=== PATIENT | male | born 1985 | race Caucasian/White ===

== ENCOUNTER 2017-09-06 17:03 | Emergency (ER) | payer SELFPAY ==
[2017-09-06 17:28] VITALS: O2SAT 98
--- NOTE | 2017-09-06 17:40 | ERPHSYRPT ---
- History of Present Illness Time Seen by Provider: 09/06/17 17:30 Source: patient Patient Subjective Stated Complaint: states twisted left knee one week ago. pain since then. Triage Nursing Assessment: left knee normal color, no bruising or swelling noted. good left pedal pulse. 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 He states left knee twisted and popped 4 days ago. Pain since. No swelling. Some numbness. No fever or redness. No hx of gout. Occurred: days ago (4) Lower Extremities Pain: knee: left Allergies/Adverse Reactions: amoxicillin Allergy (Verified 09/06/17 17:22) Home Medications: Omeprazole 20 MG [Prilosec 20 mg] 20 mg PO DAILY 09/06/17 [History] Hx Tetanus, Diphtheria Vaccination/Date Given: Yes Hx Influenza Vaccination/Date Given: No Hx Pneumococcal Vaccination/Date Given: No - Review of Systems Constitutional: No Fever, No Chills Musculoskeletal: Injury (left knee), No Back Pain, No Neck Pain Neurological: Parasthesia, No Focal Weakness, No Headache - Past Medical History Pertinent Past Medical History: Yes GI Medical History: GERD - Past Surgical History Past Surgical History: Yes Gastrointestinal: Appendectomy, Hernia Repair - Social History Smoking Status: Current every day smoker How long have you smoked: 15 Exposure to second hand smoke: No Drug Use: none Patient Lives Alone: No - Nursing Vital Signs Nursing Vital Signs: Initial Vital Signs Temperature 98.7 F 09/06/17 17:17 Pulse Rate 85 09/06/17 17:17 Respiratory Rate 16 09/06/17 17:17 Blood Pressure 141/63 09/06/17 17:17 O2 Sat by Pulse Oximetry 98 09/06/17 17:17 Pain Scale Pain Intensity 10 - Physical Exam General Appearance: alert Eyes, Ears, Nose, Throat Exam: moist mucous membranes Neck Exam: supple Cardiovascular/Respiratory Exam: regular rate/rhythm Neuro/Tendon Exam: normal sensation, normal motor functions Mental Status Exam: alert, oriented x 3, cooperative Skin Exam: warm, dry, No rash SpO2 Interpretation: normal SpO2: 98 Oxygen Delivery: Room Air Comments: left knee has mild tenderness with gonzalez and anterior drawer, no instabililty noted. No redness or swelling. No other leg tenderness. - Course Nursing assessment & vital signs reviewed: Yes Ordered Tests: Active Orders 24 hr Category Date Time Status KNEE (3 VIEWS) Stat Exams 09/06/17 17:35 Stop Req - Progress Progress Note: 09/06/17 17:40 pt declined motrin here. INSPECT reviewed. 09/06/17 17:54 Pt decided he does not want a knee xray and he will use his support wrap he already has. He plans ortho follow up. Will release with instr. Counseled pt/family regarding: diagnosis, need for follow-up - Departure Time of Disposition: 17:55 Departure Disposition: Home Clinical Impression: Left knee sprain Qualifiers: Encounter type: initial encounter Involved ligament of knee: anterior cruciate ligament Qualified Code(s): S83.512A - Sprain of anterior cruciate ligament of left knee, initial encounter Condition: Stable Critical Care Time: No Referrals: DOCTOR,NO FAMILY [NON-STAFF PHY W/O PRIVILEGES] - Instructions: Knee Sprain (DC) Additional Instructions: SPRAINS/STRAINS/CONTUSIONS 1. Rest the affected area as much as possible for the next few days. 2. Apply ice to the affected area for 20-30 minutes at a time, several times a day. 3. If you receive an elastic wrap, wear it only while awake for comfort and support. Re-wrap the elastic wrap if it feels too tight or too loose. 4. If swelling is present, elevate the affected part above the level of the heart for at least 2 to 3 days. 5. Use splints, slings, or crutches as instructed. 6. Watch for severe swelling, coldness, numbness, and discoloration of the fingers and toes. See your family physician or return to the emergency department if any of these are noted. Rx ibuprofen for pain. Prescriptions: Ibuprofen 600 mg PO Q6H PRN PRN #15 tablet PRN Reason: Pain
[2017-09-06 18:03] VITALS: BP 143/79; PULSE 90
== END 2017-09-06 18:52 | disposition home or self-care (01) ==
LOC: ED 17:03
DX: S83.512A Sprain of anterior cruciate ligament of left knee, initial encounter (principal); M25.562 Pain in left knee
CPT/HCPCS: 99281; 99283

== ENCOUNTER 2017-12-08 18:15 | Emergency (ER) | payer OTHER ==
[2017-12-08 18:31] VITALS: BP 146/76; PULSE 77; O2SAT 98
--- NOTE | 2017-12-08 20:11 | ERPHSYRPT ---
- History of Present Illness Time Seen by Provider: 12/08/17 19:59 Source: patient Exam Limitations: no limitations Patient Subjective Stated Complaint: Pt states "I have a hernia. I have had it for years but it is really bothering me today. I have been in so much pain I have been vomiting." Triage Nursing Assessment: Pt alert and oriented X 3, skin pwd. PT ambulates with an upright steady gait, able to speak in clear full sentences. no swelling noted in abdomen, painful palpation ro left lower quadrant. Physician History: This is a 31-year-old white male with history of a left inguinal hernia symptoms for 5 years. Patient states his hernias been bothering him for the past week worse today. He states he vomited one time. 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 Past medical history includes GERD, appendectomy, hernia repair on the right. Social history occasional alcohol Timing/Duration: day(s) (symptoms for several days, worse today) Severity: moderate Modifying Factors: Improves With: nothing Associated Symptoms: vomiting, abdominal pain (left groin pain), No nausea, No shortness of breath, No heartburn, No diaphoresis, No cough, No chills, No chest pain, No fever, No headaches, No loss of appetite, No malaise, No rash, No syncope, No seizure, No weakness Allergies/Adverse Reactions: amoxicillin Allergy (Verified 09/06/17 17:22) Home Medications: Omeprazole [Prilosec] 20 mg PO DAILY 12/08/17 [History] Hx Tetanus, Diphtheria Vaccination/Date Given: Yes Hx Influenza Vaccination/Date Given: No Hx Pneumococcal Vaccination/Date Given: No Immunizations Up to Date: Yes - Review of Systems Constitutional: No Fever, No Chills Eyes: No Symptoms Ears, Nose, & Throat: No Symptoms Respiratory: No Cough, No Dyspnea Cardiac: No Chest Pain, No Edema, No Syncope Abdominal/Gastrointestinal: Abdominal Pain, Other (patient states he has a hernia right lower quadrant), No Nausea, No Vomiting, No Diarrhea Genitourinary Symptoms: No Dysuria Musculoskeletal: No Back Pain, No Neck Pain Skin: No Rash Neurological: No Dizziness, No Focal Weakness, No Sensory Changes Psychological: No Symptoms Endocrine: No Symptoms All Other Systems: Reviewed and Negative - Past Medical History Pertinent Past Medical History: Yes GI Medical History: GERD - Past Surgical History Past Surgical History: Yes Gastrointestinal: Appendectomy, Hernia Repair - Social History Smoking Status: Current every day smoker How long have you smoked: 18 years Exposure to second hand smoke: Yes Drug Use: none Patient Lives Alone: Yes - Nursing Vital Signs Nursing Vital Signs: Initial Vital Signs Temperature 98.7 F 12/08/17 18:27 Pulse Rate 77 12/08/17 18:27 Respiratory Rate 16 12/08/17 18:27 Blood Pressure 146/76 12/08/17 18:27 O2 Sat by Pulse Oximetry 98 12/08/17 18:27 Pain Scale Pain Intensity 9 - Physical Exam General Appearance: no apparent distress, alert Eye Exam: PERRL/EOMI, eyes nml inspection Ears, Nose, Throat Exam: normal ENT inspection, TMs normal, pharynx normal, moist mucous membranes Neck Exam: normal inspection, non-tender, supple, full range of motion Respiratory Exam: normal breath sounds, lungs clear, No respiratory distress Cardiovascular Exam: regular rate/rhythm, normal heart sounds, normal peripheral pulses Gastrointestinal/Abdomen Exam: soft, normal bowel sounds, tenderness (mild tenderness with palpation left lower quadrant) Male Genitalia Exam: other (patient with palWilllpably her herniania ing inguinaluinal [place] with strain with straininging reduce reducess when st when stopsops straining testicles descended bilaterally) Back Exam: normal inspection, normal range of motion, No CVA tenderness, No vertebral tenderness Extremity Exam: normal inspection, normal range of motion, pelvis stable Neurologic Exam: alert, oriented x 3, cooperative, traffic control specialist II-XII nml as tested, normal mood/affect, nml cerebellar function, nml station & gait, sensation nml, No motor deficits Skin Exam: normal color, warm, dry, No rash Lymphatic Exam: No adenopathy SpO2 Interpretation: normal (98%) SpO2: 98 Oxygen Delivery: Room Air - Course Nursing assessment & vital signs reviewed: Yes - Progress Progress: improved Progress Note: 12/08/17 20:11 This is a 31-year-old white male he states he has a chronic left-sided inguinal hernia which she has had for 5 years, he states that for the past several days he's been having pain in the left groin worse with straining. States it is worse today he states he vomited times one. On physical examination patient is abdomen is soft there is slight tenderness in the left lower quadrant. Patient has a palpable inguinal hernia which is apparent with straining but reduces spontaneously when he stops draining. He does state that sometimes she can feel this on the lower anterior abdomen but if he does he pushes it back in. I cannot feel anything today he has very minimal tenderness in the left lower quadrant. I have offered to obtain CT of the patient's abdomen he does not want one. He is interested in pain medication. Will review patient's inspect and if clean consider [place] for pain patient has seen Dr. Christian showed in the past for right sided inguinal hernia will recommend he follow up with Dr. Christian. patient states he would liketo go home, will forego or further testing he does not appear to be in acute distress. - Departure Time of Disposition: 20:15 Departure Disposition: Home Clinical Impression: Left groin pain Inguinal hernia Qualifiers: Obstruction and gangrene presence: without obstruction or gangrene Laterality: unilateral Recurrence: not specified as recurrent Qualified Code(s): K40.90 - Unilateral inguinal hernia, without obstruction or gangrene, not specified as recurrent Condition: Fair Critical Care Time: No Referrals: DOCTOR,NO FAMILY [Primary Care Provider] - LELA WYATT [ACTIVE STAFF] - Instructions: Groin Hernia (DC) Additional Instructions: Return home. [place] as prescribed. No lifting more than 5 pounds for 48 hours. Cold packs to area 24-48 hours. Follow-up with Dr. Wyatt or your family doctor(list) Return for acute distress or for severe symptoms. Prescriptions: Hydrocodone/Acetaminophen [[place] 5-325 Tablet] 1 tab PO Q4-6HPRN PRN #10 tablet MDD 6 tablets PRN Reason: Pain
== END 2017-12-08 20:30 | disposition home or self-care (01) ==
LOC: ED 18:15
DX: R10.32 Left lower quadrant pain (principal); K21.9 Gastro-esophageal reflux disease without esophagitis; Z72.0 Tobacco use
CPT/HCPCS: 99283

== ENCOUNTER 2018-01-06 16:02 | Emergency (ER) | payer OTHER ==
[2018-01-06 16:29] VITALS: O2SAT 98
[2018-01-06] MEDS ORDERED: TYLENOL 325 MG PO ONE (16:52)
--- NOTE | 2018-01-06 16:56 | ERPHSYRPT ---
- History of Present Illness Time Seen by Provider: 01/06/18 16:48 Source: patient Exam Limitations: no limitations Patient Subjective Stated Complaint: c/o a slight sore throat, hurts to swallow at times. fever started yesterday getting up to 106.1. also has a left inguinal hernia that pain has gotten worse with sharp stabbing pain radiating into his testicle. if he coughs he has to push the hernia back in. Triage Nursing Assessment: alert and oriented. amb with steady gait. resp easy, no cough or SOB. skin flushed, hot. speech clear. sitting on side of bed. states has been a few days since he has had a bowel movement. worried the hernia may be causing problems or infection. hernia approx 2.5 inches long Physician History: 32-year-old white male with a history of GERD and who has a history of a of left -sided hernia. Arrives with complaint of fever up to 106 since yesterday at home no vomiting he does have a sore throat no coughing. Patient states is a hernias hurting on the left side. Past medical history includes GERD, appendectomy, hernia repair. Timing/Duration: yesterday Severity: moderate Modifying Factors: Improves With: medication (patient taking ibuprofen and tylenol at home) Associated Symptoms: abdominal pain (Left hernia pain), fever, other (sore throat), No nausea, No vomiting, No shortness of breath, No heartburn, No diaphoresis, No cough, No chills, No chest pain, No headaches, No loss of appetite, No malaise, No rash, No syncope, No seizure, No weakness Allergies/Adverse Reactions: amoxicillin Allergy (Verified 09/06/17 17:22) Home Medications: Ranitidine HCl 150 mg PO DAILY 01/06/18 [History] Hx Tetanus, Diphtheria Vaccination/Date Given: Yes Hx Influenza Vaccination/Date Given: No Hx Pneumococcal Vaccination/Date Given: No - Review of Systems Constitutional: Fever Eyes: No Symptoms Ears, Nose, & Throat: Throat Pain, Painful Swallowing, No Ear Pain, No Ear Discharge, No Hearing Changes, No Tinnitus, No Nose Pain, No Nose Congestion, No Nose Discharge, No Sinus Drainage, No Mouth Pain, No Mouth Swelling, No Loose Teeth, No Throat Swelling, No Hoarse, No Snoring, No Stridor Respiratory: No Cough, No Dyspnea Cardiac: No Chest Pain, No Edema, No Syncope Abdominal/Gastrointestinal: Abdominal Pain (pain at left inguinal hernia), No Nausea, No Vomiting, No Diarrhea Genitourinary Symptoms: No Dysuria Musculoskeletal: No Back Pain, No Neck Pain Skin: No Rash Neurological: No Dizziness, No Focal Weakness, No Sensory Changes Psychological: No Symptoms Endocrine: No Symptoms All Other Systems: Reviewed and Negative - Past Medical History Pertinent Past Medical History: No Neurological History: No Pertinent History ENT History: No Pertinent History Cardiac History: No Pertinent History Respiratory History: No Pertinent History Endocrine Medical History: No Pertinent History Musculoskeletal History: No Pertinent History GI Medical History: No Pertinent History History: No Pertinent History Psycho-Social History: No Pertinent History Male Reproductive Disorders: No Pertinent History - Past Surgical History Past Surgical History: Yes Neuro Surgical History: No Pertinent History Cardiac: No Pertinent History Respiratory: No Pertinent History Gastrointestinal: Appendectomy, Hernia Repair Genitourinary: No Pertinent History Musculoskeletal: Orthopedic Surgery Male Surgical History: No Pertinent History - Social History Smoking Status: Current every day smoker How long have you smoked: 18 years Exposure to second hand smoke: Yes Drug Use: none Patient Lives Alone: Yes - Nursing Vital Signs Nursing Vital Signs: Initial Vital Signs Temperature 101.6 F 01/06/18 16:03 Pulse Rate 96 H 01/06/18 16:03 Respiratory Rate 18 01/06/18 16:03 Blood Pressure 149/83 01/06/18 16:03 O2 Sat by Pulse Oximetry 98 01/06/18 16:03 Pain Scale Pain Intensity 0 - Physical Exam General Appearance: no apparent distress, alert Eye Exam: PERRL/EOMI, eyes nml inspection Ears, Nose, Throat Exam: TMs normal, moist mucous membranes, pharyngeal erythema , No pharynx normal, No dry mucous membranes Neck Exam: normal inspection, non-tender, supple, full range of motion Respiratory Exam: normal breath sounds, lungs clear, No respiratory distress Cardiovascular Exam: regular rate/rhythm, normal heart sounds, normal peripheral pulses Gastrointestinal/Abdomen Exam: soft, normal bowel sounds, other (palpable left inguinal hernia with straining reproduces spontaneously), No tenderness, No mass Back Exam: normal inspection, normal range of motion, No CVA tenderness, No vertebral tenderness Extremity Exam: normal inspection, normal range of motion, pelvis stable Neurologic Exam: alert, oriented x 3, cooperative, final inspector balance wheel II-XII nml as tested, normal mood/affect, nml cerebellar function, nml station & gait, sensation nml, No motor deficits Skin Exam: normal color, warm, dry, No rash Lymphatic Exam: No adenopathy SpO2 Interpretation: normal (98%) SpO2: 98 Oxygen Delivery: Room Air - Course Nursing assessment & vital signs reviewed: Yes Ordered Tests: Active Orders 24 hr Category Date Time Status Frame [employer] Trailers STAT Care 01/06/18 16:45 Active IV Insertion STAT Care 01/06/18 16:45 Active IV Insertion STAT Care 01/06/18 16:45 Active Pulse Oximetry (ED) STAT Care 01/06/18 16:45 Active BLOOD CULTURE Stat Lab 01/06/18 16:30 Received CBC W DIFF Stat Lab 01/06/18 16:45 Completed CMP Stat Lab 01/06/18 Completed CULTURE,URINE Stat Lab 01/06/18 17:22 Ordered Lactic Acid Stat Lab 01/06/18 17:15 Completed Manual Differential NC Stat Lab 01/06/18 16:45 Completed PROTIME WITH INR Stat Lab 01/06/18 Completed PTT Stat Lab 01/06/18 Completed UA W/ MICROSCOPIC Stat Lab 01/06/18 17:22 Completed Medication Summary Discontinued Medications Generic Name Dose Route Start Last Admin Trade Name Freq PRN Reason Stop Dose Admin Acetaminophen 650 mg 01/06/18 16:52 01/06/18 17:29 Tylenol 325 Mg PO 01/06/18 16:53 650 mg STAT ONE Administration Acetaminophen Confirm 01/06/18 17:27 Tylenol 325 Mg Administered 01/06/18 17:28 Dose 650 mg .ROUTE .STK-MED ONE Sodium Chloride 1,000 mls @ 999 mls/hr 01/06/18 16:45 01/06/18 18:46 Sodium Chloride 0.9% 1000 Ml IV 01/06/18 19:45 0 mls/hr .Q1H1M JENNIE Infusion Ceftriaxone Sodium/Dextrose 1 g in 50 mls @ 100 mls/hr 01/06/18 18:30 18:40 Rocephin 1 Gm-D5w 50 Ml Bag IV 01/06/18 18:59 125 ml/hr STAT STA 125 mls/hr Administration Ceftriaxone Sodium/Dextrose Confirm 01/06/18 18:37 Rocephin 1 Gm-D5w 50 Ml Bag Administered 01/06/18 18:38 Dose 1 g in 50 mls @ ud IV .STK-MED ONE Sodium Chloride Confirm 01/06/18 17:27 Sodium Chloride 0.9% 1000 Ml Administered 01/06/18 17:28 Dose 1,000 mls @ ud .ROUTE .STK-MED ONE Sodium Chloride Confirm 01/06/18 18:35 Sodium Chloride 0.9% 1000 Ml Administered 01/06/18 18:36 Dose 1,000 mls @ ud .ROUTE .STK-MED ONE Lab/Rad Data: Laboratory Result Diagrams 01/06/18 16:45 01/06/18 Unknown Laboratory Results 01/06/18 01/06/18 01/06/18 Range/Units Unknown Unknown 17:50 WBC (4.0-10.5) K/mm3 RBC (4.1-5.6) M/mm3 Hgb (12.5-18.0) gm/dl Hct (42-50) % MCV (78-100) fl MCH (26-32) pg MCHC (32-36) g/dl RDW (11.5-14.0) % Plt Count (150-450) K/mm3 MPV (6-9.5) fl Absolute Granulocytes (1.4-6.9) PT 11.5 (8.83-12.87) SECONDS INR 0.99 (0.8-3.0) APTT 44.1 H (24.1-36.1) SECONDS Sodium 143 (137-145) mmol/L Potassium 3.6 (3.5-5.1) mmol/L Chloride 105 (98-107) mmol/L Carbon Dioxide 27 (22-30) mmol/L Anion Gap 14.8 (5-15) MEQ/L BUN 13 (9-20) mg/dL Creatinine 0.94 (0.66-1.25) mg/dL Estimated GFR > 60.0 ML/MIN Glucose 87 (74-106) mg/dL Lactic Acid (0.4-2.0) Calcium 9.2 (8.4-10.2) mg/dL Total Bilirubin 0.30 (0.2-1.3) mg/dL AST 21 (17-59) U/L ALT 25 (0-50) U/L Alkaline Phosphatase 114 (38-126) U/L Serum Total Protein 7.6 (6.3-8.2) g/dL Albumin 4.4 (3.5-5.0) g/dL Ur Collection Type Urine Color (YELLOW) Urine Appearance (CLEAR) Urine pH (5-6) Ur Specific [place] (1.005-1.025) Urine Protein (Negative) Urine Ketones (NEGATIVE) Urine Blood (0-5) Celso/ul Urine Nitrite (NEGATIVE) Urine Bilirubin (NEGATIVE) Urine Urobilinogen (0-1) mg/dL Ur Leukocyte Esterase (NEGATIVE) Urine Microscopic RBC (0-2) /HPF Urine Bacteria (NEGATIVE) /HPF Granular Casts (NEGATIVE) /LPF Urine Mucus (NEGATIVE) /HPF Urine Glucose (NEGATIVE) mg/dL Group A Strep Antibody NEGATIVE (NEGATIVE) Specimen Received 01/06/18 01/06/18 01/06/18 Range/Units 17:22 17:15 16:45 WBC 19.1 H (4.0-10.5) K/mm3 RBC 5.83 H (4.1-5.6) M/mm3 Hgb 17.0 (12.5-18.0) gm/dl Hct 49.3 (42-50) % MCV 84.6 (78-100) fl MCH 29.1 (26-32) pg MCHC 34.5 (32-36) g/dl RDW 14.3 H (11.5-14.0) % Plt Count 179 (150-450) K/mm3 MPV 11.1 H (6-9.5) fl Absolute Granulocytes 14.96 H (1.4-6.9) PT (8.83-12.87) SECONDS INR (0.8-3.0) APTT (24.1-36.1) SECONDS Sodium (137-145) mmol/L Potassium (3.5-5.1) mmol/L Chloride (98-107) mmol/L Carbon Dioxide (22-30) mmol/L Anion Gap (5-15) MEQ/L BUN (9-20) mg/dL Creatinine (0.66-1.25) mg/dL Estimated GFR ML/MIN Glucose (74-106) mg/dL Lactic Acid 1.1 (0.4-2.0) Calcium (8.4-10.2) mg/dL Total Bilirubin (0.2-1.3) mg/dL AST (17-59) U/L ALT (0-50) U/L Alkaline Phosphatase (38-126) U/L Serum Total Protein (6.3-8.2) g/dL Albumin (3.5-5.0) g/dL Ur Collection Type VOID Urine Color YELLOW (YELLOW) Urine Appearance HAZY (CLEAR) Urine pH 7.0 (5-6) Ur Specific [place] 1.015 (1.005-1.025) Urine Protein NEGATIVE (Negative) Urine Ketones NEGATIVE (NEGATIVE) Urine Blood 50 (0-5) Celso/ul Urine Nitrite NEGATIVE (NEGATIVE) Urine Bilirubin NEGATIVE (NEGATIVE) Urine Urobilinogen 1 (0-1) mg/dL Ur Leukocyte Esterase NEGATIVE (NEGATIVE) Urine Microscopic RBC 2-5 (0-2) /HPF Urine Bacteria RARE (NEGATIVE) /HPF Granular Casts 0-2 (NEGATIVE) /LPF Urine Mucus SLIGHT (NEGATIVE) /HPF Urine Glucose NEGATIVE (NEGATIVE) mg/dL Group A Strep Antibody (NEGATIVE) Specimen Received 01/06/185 - Progress Progress: improved Progress Note: 01/06/18 16:56 32-year-old white male with history of left inguinal hernia for years arrives with complaint of sore throat and fever since yesterday states his temperature is been 106 at home yesterday. On arrival patient does not appear to be in acute distress at temperature is elevated at 101.6 his is stable he has good perfusion to his extremities blood pressure is stable. Pulseox is within normal limits, lungs are clear heart is regular rate and rhythm no murmur. Throat is somewhat erythematous. Patient apparently triggered sepsis protocol therefore IV fluids are started sepsis labs have been ordered. 01/06/18 17:48 Patient lactate is 1.1. Patient does not appear to be septic.Fluids reduced to him 01/06/18 19:32 Patient was noted to have an elevated white count of 19,[address] of the abdomen had been ordered. Patient was started on IV fluids and Rocephin had been ordered. Patient really with a minimal pain on examination and had not mentioned wanting any pain medications. However he apparently told the nurse that he was leaving because he didn't get any pain medications on arrival.him he would not stay for me to talk to him about this. And left AMA. 01/06/18 19:36 - Departure Time of Disposition: 18:45 Departure Disposition: AMA Clinical Impression: Fever Qualifiers: Fever type: unspecified Qualified Code(s): R50.9 - Fever, unspecified Leukocytosis Qualifiers: Leukocytosis type: unspecified Qualified Code(s): D72.829 - Elevated white blood cell count, unspecified Abdominal pain Qualifiers: Abdominal location: left lower quadrant Qualified Code(s): R10.32 - Left lower quadrant pain Condition: Fair Critical Care Time: No Referrals: DOCTOR,NO FAMILY [Primary Care Provider] -
[2018-01-06] MEDS ORDERED: TYLENOL 325 MG ONE (17:27)
[2018-01-06] MEDS ORDERED: Sodium Chloride 0.9% 1000 ML 1,000 ML ONE ×2 (17:27→18:35)
[2018-01-06] MEDS: Sodium Chloride 0.9% 1000 ML 1,000 ML IV SCH ×2 (17:29→18:36)
[2018-01-06 17:34] LABS: Granulocyte Absolute (ANC) 14.96 (1.4-6.9); Hematocrit 49.3 % (42-50); Mean Cell Volume 84.6 fl (78-100); Mean Corpuscular Hgb Concent. 34.5 g/dl (32-36); Mean Platelet Volume 11.1 fl (6-9.5); Platelet Count 179 K/mm3 (150-450); Red Blood Count 5.83 M/mm3 (4.1-5.6); Red Cell Distribution Width 14.3 % (11.5-14.0); White Blood Count 19.1 K/mm3 (4.0-10.5)
[2018-01-06 17:53] LABS: INR 0.99 (0.8-3.0)
[2018-01-06 17:56] LABS: PTT 44.1 SECONDS (24.1-36.1)
[2018-01-06 17:57] LABS: ALBUMIN 4.4 g/dL (3.5-5.0); ALKALINE PHOSPHATASE 114 U/L (38-126); ANION GAP 14.8 MEQ/L (5-15); BLOOD UREA NITROGEN 13 mg/dL (9-20); CHLORIDE 105 mmol/L (98-107); Calcium 9.2 mg/dL (8.4-10.2); Carbon Dioxide 27 mmol/L (22-30); Creatinine 1 0.94 mg/dL (0.66-1.25); Glucose 87 mg/dL (74-106); Potassium 3.6 mmol/L (3.5-5.1); SGOT/AST 21 U/L (17-59); SGPT/ALT 25 U/L (0-50); SODIUM 143 mmol/L (137-145); Total Protein 7.6 g/dL (6.3-8.2)
[2018-01-06 18:20] LABS: Mean Corpuscular Hemoglobin 29.1 pg (26-32)
[2018-01-06 18:25] LABS: Appearance HAZY (CLEAR); Glucose NEGATIVE (NEGATIVE); Leukocyte Esterase NEGATIVE (NEGATIVE); Nitrite NEGATIVE (NEGATIVE); Protein,Urine Dip NEGATIVE (Negative); Specific Gravity 1.015 (1.005-1.025)
[2018-01-06 18:26] LABS: Bilirubin NEGATIVE (NEGATIVE); Blood 50 Ery/ul (0-5); Ketones NEGATIVE (NEGATIVE); Urobilinogen 1 mg/dL (0-1)
[2018-01-06 18:27] LABS: Mucus SLIGHT /HPF (NEGATIVE)
[2018-01-06 18:28] LABS: Bacteria RARE /HPF (NEGATIVE); Granular Casts 0-2 /LPF (NEGATIVE)
[2018-01-06] MEDS ORDERED: ROCEPHIN 1 Gm-D5w 50 ml Bag** 1 G/50 ML IVPB IV STA (18:30)
[2018-01-06] MEDS ORDERED: ROCEPHIN 1 Gm-D5w 50 ml Bag** 1 G/50 ML IVPB IV ONE (18:37)
[2018-01-06 18:43] VITALS: BP 130/68; PULSE 126
[2018-01-06 21:58] LABS: BAND 2 % (0.0-2.0); Eosinophil 1 % (0.00-3.0); Lymphocytes 4 % (24-44); Monocyte 11 % (0.0-12.0); Neutrophils 82 % (36.-66.); Platelet Estimate NORMAL (NORMAL); Total Cells Counted 100
== END 2018-01-06 18:53 | disposition left against medical advice (07) ==
LOC: ED 16:02
DX: R50.9 Fever, unspecified (principal); D72.829 Elevated white blood cell count, unspecified; R07.0 Pain in throat; R10.9 Unspecified abdominal pain; K40.90 Unilateral inguinal hernia, without obstruction or gangrene, not specified as recurrent
CPT/HCPCS: 36000; 36415; 80053; 81000; 83605; 85025; 85610; 85730; 87040; 87086; 87651; 93041; 96365; 99284; J0696; A9270-GY

== ENCOUNTER 2018-11-28 19:13 | Emergency (ER) | payer SELFPAY ==
--- NOTE | 2018-11-28 20:04 | ERPHSYRPT ---
- History of Present Illness Time Seen by Provider: 11/28/18 19:57 Source: patient Exam Limitations: no limitations Patient Subjective Stated Complaint: pt states he has had a cough and congestion for 3 1/2 weeks. states he has been coughing up phlegm- white, yellow , green and has had a intermittent fever at home Triage Nursing Assessment: pt alert and oriented, answers questions approp. pt ambulatory with steady gait noted. respirations nonlabored with lungs cta. occasional cough noted. skin pink warm and dry. Physician History: 32-year-old white male previously healthy arrives with complaint of fever cough cold congestion symptoms off and on for 3-1/2 weeks. Patient without any nausea no vomiting no shortness of breath. Past medical history is negative. Past surgical history includes appendectomy and hernia repair. Social history includes tobacco use denies alcohol or illicit drug use. Timing/Duration: week(s) (3-1/2 weeks) Severity: moderate Modifying Factors: Improves With: nothing Associated Symptoms: cough, fever, No nausea, No vomiting, No abdominal pain, No shortness of breath, No heartburn, No diaphoresis, No chills, No chest pain, No headaches, No loss of appetite, No malaise, No rash, No syncope, No seizure, No weakness Allergies/Adverse Reactions: amoxicillin Allergy (Verified 11/28/18 19:30) Home Medications: Ranitidine HCl 150 mg PO HS 01/06/18 [History] Hx Tetanus, Diphtheria Vaccination/Date Given: Yes Hx Influenza Vaccination/Date Given: No Hx Pneumococcal Vaccination/Date Given: No Immunizations Up to Date: Yes - Review of Systems Constitutional: Fever, No Chills, No Fatigue, No Lethargy, No Malaise, No Night Sweats, No Weakness, No Weight Loss Eyes: No Symptoms Ears, Nose, & Throat: Ear Pain (right ear pain), Nose Congestion, Sinus Drainage , No Ear Discharge, No Hearing Changes, No Nose Pain, No Nose Discharge, No Epistaxis, No Mouth Pain, No Mouth Swelling, No Loose Teeth, No Throat Pain, No Throat Swelling, No Hoarse, No Painful Swallowing, No Snoring, No Stridor Respiratory: Cough, No Cyanosis, No Dyspnea, No Dyspnea on Exertion (DRAKE), No Stridor, No Wheezing Cardiac: No Chest Pain, No Edema, No Syncope Abdominal/Gastrointestinal: No Abdominal Pain, No Nausea, No Vomiting, No Diarrhea Genitourinary Symptoms: No Dysuria Musculoskeletal: No Back Pain, No Neck Pain Skin: No Rash Neurological: No Dizziness, No Focal Weakness, No Sensory Changes Psychological: No Symptoms Endocrine: No Symptoms All Other Systems: Reviewed and Negative - Past Medical History Pertinent Past Medical History: No Neurological History: No Pertinent History ENT History: No Pertinent History Cardiac History: No Pertinent History Respiratory History: No Pertinent History Endocrine Medical History: No Pertinent History Musculoskeletal History: No Pertinent History GI Medical History: No Pertinent History History: No Pertinent History Psycho-Social History: No Pertinent History Male Reproductive Disorders: No Pertinent History - Past Surgical History Past Surgical History: Yes Neuro Surgical History: No Pertinent History Cardiac: No Pertinent History Respiratory: No Pertinent History Gastrointestinal: Appendectomy, Hernia Repair Genitourinary: No Pertinent History Musculoskeletal: Orthopedic Surgery Male Surgical History: No Pertinent History - Social History Smoking Status: Current every day smoker How long have you smoked: 15 years Exposure to second hand smoke: Yes Drug Use: none Patient Lives Alone: No - Nursing Vital Signs Nursing Vital Signs: Initial Vital Signs Temperature 98.5 F 11/28/18 19:23 Pulse Rate 86 11/28/18 19:23 Respiratory Rate 16 11/28/18 19:23 Blood Pressure 161/86 11/28/18 19:23 O2 Sat by Pulse Oximetry 96 11/28/18 19:23 Pain Scale Pain Intensity 4 - Physical Exam General Appearance: no apparent distress, alert Eye Exam: PERRL/EOMI, eyes nml inspection Ears, Nose, Throat Exam: pharynx normal, moist mucous membranes, TM abnormal (R) , No TMs normal (right TM erythematous), No dry mucous membranes, No TM abnormal (L), No pharyngeal erythema, No tonsillar exudate Neck Exam: normal inspection, non-tender, supple, full range of motion Respiratory Exam: normal breath sounds, lungs clear, No respiratory distress Cardiovascular Exam: regular rate/rhythm, normal heart sounds, normal peripheral pulses, capillary refill <2 sec Gastrointestinal/Abdomen Exam: soft, normal bowel sounds, No tenderness, No mass Back Exam: normal inspection, normal range of motion, No CVA tenderness, No vertebral tenderness Extremity Exam: normal inspection, normal range of motion, pelvis stable Neurologic Exam: alert, oriented x 3, cooperative, 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 Will start patient on Zithromax. Patient has been told to quit smoking he appears to be stable will discharge. - Departure Departure Disposition: Home Clinical Impression: Pneumonia Qualifiers: Pneumonia type: due to unspecified organism Laterality: right Lung location: middle lobe of lung Qualified Code(s): J18.1 - Lobar pneumonia, unspecified organism Condition: Fair Critical Care Time: No Referrals: DOCTOR,NO FAMILY [Primary Care Provider] - Instructions: Pneumonia, Adult (DC) Additional Instructions: Return home. Plenty of fluids. Zithromax as prescribed. Stop smoking. Followup with your family (list). Return for acute distress or for severe symptoms or for any problems. Prescriptions: Azithromycin [Zithromax] 250 mg PO DAILY #4 tablet
[2018-11-28] MEDS ORDERED: Zithromax 250 MG TABLET PO ONE (20:51)
[2018-11-28] MEDS ORDERED: Zithromax 250 MG TABLET ONE (20:55)
[2018-11-28 20:59] VITALS: BP 119/71; PULSE 84; O2SAT 94
--- NOTE | 2018-11-29 08:53 | XRAY ---
Indication: Fever and cough. Comparison: None Portable chest demonstrates normal heart and lungs with incidental right apical calcified granuloma and overlying jewelry. Bony thorax intact with mild spinal degenerative changes.
== END 2018-11-28 21:08 | disposition home or self-care (01) ==
LOC: ED 19:13
DX: J18.1 Lobar pneumonia, unspecified organism (principal); R05 Cough; R50.9 Fever, unspecified
CPT/HCPCS: 71045; 99283; A9270-GY

== ENCOUNTER 2019-03-29 19:52 | Emergency (ER) | payer BC ==
[2019-03-29 20:04] VITALS: BP 143/77; PULSE 74; O2SAT 98
--- NOTE | 2019-03-29 20:47 | ERPHSYRPT ---
- History of Present Illness Time Seen by Provider: 03/29/19 20:20 Source: patient, family Patient Subjective Stated Complaint: Right knee pain/injury Triage Nursing Assessment: Patient ambulated into ED and transferred self to bed. Patient A+O X3. Patient's skin pink, warm and dry. Patient complains of right knee pain after falling during fishing 8-9 feet 3 weeks ago. Patient states the pain is 10/10 when right knee is touched. Patient able to bear weight. No visible red or bruising noted. Physician History: 33 y/o white male presents with persistent right knee pain after a fall of 8 to 9 feet 3 weeks ago. no evaluation ever performed. pain worse when squatting down or putting pants on. Occurred: other (3 weeks ago) Reason for Fall: slipped Injuries/Pain Location: lower extremity (right knee) Loss of Consciousness: no loss of consciousness Quality: aching Severity of Pain-Max: mild Severity of Pain-Current: mild Modifying Factors: Improves With: movement, other (squatting) Associated Symptoms (Fall): extremity injury Allergies/Adverse Reactions: amoxicillin Allergy (Verified 11/28/18 19:30) Penicillins Allergy (Verified 03/29/19 19:57) Hx Tetanus, Diphtheria Vaccination/Date Given: Yes Hx Influenza Vaccination/Date Given: No Hx Pneumococcal Vaccination/Date Given: No Immunizations Up to Date: Yes - Review of Systems Constitutional: No Symptoms Eyes: No Symptoms Ears, Nose, & Throat: No Symptoms Respiratory: No Symptoms Cardiac: No Symptoms Abdominal/Gastrointestinal: No Symptoms Genitourinary Symptoms: No Symptoms Musculoskeletal: Injury, Joint Pain (right knee) Skin: No Symptoms Neurological: No Symptoms Psychological: No Symptoms Endocrine: No Symptoms Hematologic/Lymphatic: No Symptoms Immunological/Allergic: No Symptoms All Other Systems: Reviewed and Negative - Past Medical History Pertinent Past Medical History: No Neurological History: No Pertinent History ENT History: No Pertinent History Cardiac History: No Pertinent History Respiratory History: No Pertinent History Endocrine Medical History: No Pertinent History Musculoskeletal History: No Pertinent History GI Medical History: No Pertinent History History: No Pertinent History Psycho-Social History: No Pertinent History Male Reproductive Disorders: No Pertinent History - Past Surgical History Past Surgical History: Yes Neuro Surgical History: No Pertinent History Cardiac: No Pertinent History Respiratory: No Pertinent History Gastrointestinal: Appendectomy, Hernia Repair Genitourinary: No Pertinent History Musculoskeletal: Orthopedic Surgery Male Surgical History: No Pertinent History - Social History Smoking Status: Current every day smoker How long have you smoked: years Exposure to second hand smoke: No Drug Use: none Patient Lives Alone: No - Nursing Vital Signs Nursing Vital Signs: Initial Vital Signs Temperature 98.7 F 03/29/19 19:58 Pulse Rate 74 03/29/19 19:58 Respiratory Rate 18 03/29/19 19:58 Blood Pressure 143/77 03/29/19 19:58 O2 Sat by Pulse Oximetry 98 03/29/19 19:58 Pain Scale Pain Intensity 6 - Curtis Coma Score Best Eye Response (Curtis): (4) open spontaneously Best Verbal Response (Curtis): (5) oriented Best Motor Response (Curtis): (6) obeys commands [place] Total: 15 - Physical Exam General Appearance: no apparent distress, alert, anxiety Head Injury: no evidence of injury Eye Exam: PERRL/EOMI, eyes nml inspection ENT Exam: airway nml, nml ext.inspection Neck Exam: supple, trachea midline, full range of motion, normal alignment Respiratory/Chest Exam: No chest tenderness Gastrointestinal Exam: No tenderness Rectal Exam: not done Back Exam: normal inspection, normal range of motion, CVA tenderness, No vertebral tenderness Extremity Exam: normal inspection, normal range of motion, tenderness (right ant knee), No evidence of injury Neurologic Exam: alert, oriented x 3, 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, 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 Skin Exam: normal color, warm, dry SpO2 Interpretation: normal SpO2: 98 O2 Delivery: Room Air - Course Nursing assessment & vital signs reviewed: Yes Ordered Tests: Active Orders 24 hr Category Date Time Status KNEE (3 VIEWS) Stat Exams 03/29/19 20:06 Taken Medication Summary Discontinued Medications Generic Name Dose Route Start Last Admin Trade Name Freq PRN Reason Stop Dose Admin Oxycodone/Acetaminophen 1 tab 03/29/19 21:25 Percocet Tablet 5/325mg PO 03/29/19 21:26 STAT STA Oxycodone/Acetaminophen 2 tab 03/29/19 21:25 Percocet Tablet 5/325mg PO 03/29/19 21:26 SENT HOME W/ PATIENT STA - Progress Progress: unchanged Progress Note: 03/29/19 21:26 xray right knee-no acute fx or dislocation Counseled pt/family regarding: diagnosis, need for follow-up, rad results - Departure Departure Disposition: Home Clinical Impression: Right knee sprain Condition: Stable Critical Care Time: No Referrals: DOCTOR,NO FAMILY [Primary Care Provider] - [facility] - TAINA LOPEZ POWER SYSTEM ENGINEER [NON-STAFF PHY W/O PRIVILEGES] - [facility]-Orth[facility] M-F [phone] (pt with 3 week h/o right knee pain after a fall. xray negative ) Additional Instructions: ice pack to area 3 times daily
[2019-03-29] MEDS ORDERED: PERCOCET TABLET 5/325MG PO STA ×2 (21:25)
[2019-03-29] MEDS ORDERED: PERCOCET TABLET 5/325MG ONE (21:27)
--- NOTE | 2019-03-30 08:38 | XRAY ---
Indication: Pain following fall 3 weeks ago. Comparison: None 3 views of the right knee obtained. No bony, articular, or soft tissue abnormalities.
== END 2019-03-29 21:47 | disposition home or self-care (01) ==
LOC: ED 19:52
DX: S83.91XA Sprain of unspecified site of right knee, initial encounter (principal); M25.561 Pain in right knee; W17.89XD Other fall from one level to another, subsequent encounter
CPT/HCPCS: 73562; 99283; A9270-GY

== ENCOUNTER 2020-06-05 21:55 | Emergency (ER) | payer SELFPAY ==
[2020-06-05] MEDS ORDERED: TORAdol 30 mg Injection IM ONE (22:08)
--- NOTE | 2020-06-05 22:12 | ERPHSYRPT ---
- History of Present Illness Time Seen by Provider: 06/05/20 22:10 Source: patient Physician History: Patient is a 34-year-old male presents to our ED with left-sided foot pain. Patient states he was pulling a floor diana from the back of his truck when it fell onto his left foot. Injury occurred last night. Patient did not immediately come in because he figured his pain would improve. Patient states that his soreness was worse today. No other injuries reported. Pain described as an ache that is well localized. No radiation. Pain worse with weightbearing. Pain improved with rest. Patient has not taken any pain medication. No other injuries reported. Patient otherwise healthy. He voices no other complaints or concerns at this time. Timing/Duration: yesterday Severity: moderate Modifying Factors: Improves With: immobilization Associated Symptoms: denies symptoms Allergies/Adverse Reactions: amoxicillin Allergy (Verified 06/05/20 22:03) Hives Penicillins Allergy (Verified 06/05/20 22:03) Hives Home Medications: Omeprazole 20 mg PO DAILY 06/05/20 [History] Hx Tetanus, Diphtheria Vaccination/Date Given: Yes Hx Influenza Vaccination/Date Given: No Hx Pneumococcal Vaccination/Date Given: No - Review of Systems Constitutional: No Symptoms, No Fever, No Chills Eyes: No Symptoms Ears, Nose, & Throat: No Symptoms Respiratory: No Symptoms, No Cough, No Dyspnea Cardiac: No Symptoms, No Chest Pain, No Edema, No Syncope Abdominal/Gastrointestinal: No Symptoms, No Abdominal Pain, No Nausea, No Vomiting, No Diarrhea Genitourinary Symptoms: No Symptoms, No Dysuria Musculoskeletal: No Symptoms, No Back Pain, No Neck Pain Skin: No Symptoms, No Rash Neurological: No Symptoms, No Dizziness, No Focal Weakness, No Sensory Changes Psychological: No Symptoms Endocrine: No Symptoms Hematologic/Lymphatic: No Symptoms Immunological/Allergic: No Symptoms All Other Systems: Reviewed and Negative - Past Medical History Pertinent Past Medical History: No Neurological History: No Pertinent History ENT History: No Pertinent History Cardiac History: No Pertinent History Respiratory History: No Pertinent History Endocrine Medical History: No Pertinent History Musculoskeletal History: No Pertinent History GI Medical History: No Pertinent History History: No Pertinent History Psycho-Social History: No Pertinent History Male Reproductive Disorders: No Pertinent History - Past Surgical History Past Surgical History: Yes Neuro Surgical History: No Pertinent History Cardiac: No Pertinent History Respiratory: No Pertinent History Gastrointestinal: Appendectomy, Hernia Repair Genitourinary: No Pertinent History Musculoskeletal: Orthopedic Surgery Male Surgical History: No Pertinent History - Social History Smoking Status: Current every day smoker How long have you smoked: years Exposure to second hand smoke: No Drug Use: none Patient Lives Alone: No - Nursing Vital Signs Nursing Vital Signs: Initial Vital Signs Temperature 98.8 F 06/05/20 22:04 Pulse Rate 88 06/05/20 22:04 Respiratory Rate 18 06/05/20 22:04 Blood Pressure 144/86 06/05/20 22:04 O2 Sat by Pulse Oximetry 97 06/05/20 22:04 Pain Scale Pain Intensity 8 - Physical Exam General Appearance: no apparent distress, alert Eye Exam: PERRL/EOMI, eyes nml inspection Ears, Nose, Throat Exam: normal ENT inspection, TMs normal, pharynx normal, moist mucous membranes Neck Exam: normal inspection, non-tender, supple, full range of motion Respiratory Exam: normal breath sounds, lungs clear, No respiratory distress Cardiovascular Exam: regular rate/rhythm, normal heart sounds, normal peripheral pulses Gastrointestinal/Abdomen Exam: soft, normal bowel sounds, No tenderness, No mass Back Exam: normal inspection, normal range of motion, No CVA tenderness, No vertebral tenderness Extremity Exam: normal range of motion, pelvis stable, limited range of motion (Tenderness to palpation at the dorsal aspect of his left foot. Overlying soft tissue intact. There is visible swelling. DP and TP pulse palpable. Active range of motion limited due to pain. No subungual hematoma. Extremity is pink warm and well-perfused. Compartments are soft. Cap refill les), swelling, No parasthesia, No elva's sign, No joint swelling Neurologic Exam: alert, oriented x 3, cooperative, normal mood/affect, nml cerebellar function, nml station & gait, sensation nml, No motor deficits Skin Exam: normal color, warm, dry, No rash Lymphatic Exam: No adenopathy SpO2 Interpretation: normal SpO2: 98 O2 Delivery: Room Air - Radiology Exams Foot X-ray Interpretation: Interpreted by me (No fractures or dislocations) Ordered Tests: Active Orders 24 hr Category Date Time Status Cold Application STAT Care 06/05/20 22:03 Active FOOT (MINIMUM 3 VIEWS) Stat Exams 06/05/20 22:01 Taken Medication Summary Discontinued Medications Generic Name Dose Route Start Last Admin Trade Name Freq PRN Reason Stop Dose Admin Ketorolac Tromethamine 30 mg 06/05/20 22:08 06/05/20 22:16 Toradol 30 Mg Injection IM 06/05/20 22:09 30 mg STAT ONE Administration Ketorolac Tromethamine Confirm 06/05/20 22:14 Toradol 30 Mg Injection Administered 06/05/20 22:15 Dose 30 mg .ROUTE .STK-MED ONE - Progress Progress: improved Progress Note: 06/05/20 22:57 Patient reassessed. Pain improved. X-ray negative for acute fracture dislocation. Official read pending. Patient given walking boot for home Patient agrees to follow-up with his primary care doctor within 48 hours for reevaluation. 06/05/20 23:02 Counseled pt/family regarding: diagnosis, need for follow-up, rad results - Departure Departure Disposition: Home Clinical Impression: Foot contusion Condition: Stable Critical Care Time: No Referrals: TAINA LOPEZ STATISTICAL TECHNICIAN [NON-STAFF Y W/O PRIVILEGES] - Instructions: Contusion (DC) Additional Instructions: Discharge/Care Plan OBI MANN was seen on 06/05/20 in the Emergency Room. The patient was counseled regarding Diagnosis,Lab results, Imaging studies, need for follow up and when to return to the Emergency Room. Prescriptions given: Discharge Note I have spoken with the patient and/or caregivers. I have explained the patient's condition, diagnosis and treatment plan based on the information available to me at this time. I have answered the patient's and/or caregiver's questions and addressed any concerns. The patient and/or caregivers have as good understanding of the patient's diagnosis, condition and treatment plan as can be expected at this point. The vital signs have been stable. The patient's condition is stable and appropriate for discharge from the emergency department. The patient will pursue further outpatient evaluation with the primary care physician or other designated or consulting physician as outlined in the discharge instructions. The patient and/or caregivers are agreeable to this plan of care and follow-up instructions have been explained in detail. The patient and/or caregivers have received these instruction. The patient/and or caregivers are aware that any significant change in condition or worsening of symptoms should prompt an immediate return to this or the closest emergency department or call 911.
[2020-06-05] MEDS ORDERED: TORAdol 30 mg Injection ONE (22:14)
[2020-06-05 22:28] VITALS: O2SAT 98
[2020-06-05 23:07] VITALS: BP 153/93; PULSE 84
--- NOTE | 2020-06-06 09:01 | XRAY ---
Indication: Pain following injury. Comparison: None 3 nonweightbearing views left foot obtained. No bony, articular, or soft tissue abnormalities.
== END 2020-06-05 23:05 | disposition home or self-care (01) ==
LOC: ED 21:55
DX: S90.32XA Contusion of left foot, initial encounter (principal); M79.672 Pain in left foot; W22.8XXA Striking against or struck by other objects, initial encounter; Y93.89 Activity, other specified; Y92.9 Unspecified place or not applicable
CPT/HCPCS: 73630; 96372; 99284; J1885; L4386